=== PATIENT | female | born 1970 | race Two or more races ===

== ENCOUNTER 2019-02-04 08:26 | Outpatient (CLI) | payer OTHER | END 2019-02-04 14:21 | disposition home or self-care (01) | LOC: SONOGRAMA 08:26 | DX: E04.1 Nontoxic single thyroid nodule (principal); C73 Malignant neoplasm of thyroid gland ==

== ENCOUNTER 2019-02-22 08:35 | Outpatient (CLI) | payer OTHER | END 2019-02-22 11:53 | disposition home or self-care (01) | LOC: RAD 08:35 | DX: M54.2 Cervicalgia (principal); M54.5 Low back pain; M54.6 Pain in thoracic spine ==

== ENCOUNTER 2019-05-10 10:06 | Outpatient (CLI) | payer OTHER | END 2019-05-10 10:08 | disposition home or self-care (01) | LOC: MAMO-SONO 10:06 | DX: N60.11 Diffuse cystic mastopathy of right breast (principal); N60.12 Diffuse cystic mastopathy of left breast; Z12.31 Encounter for screening mammogram for malignant neoplasm of breast; Z87.898 Personal history of other specified conditions ==

== ENCOUNTER → 2020-02-03 | Outpatient (CLI) | payer OTHER | END | disposition home or self-care (01) | LOC: PPH VACUNA 08:00 | DX: Z23 Encounter for immunization (principal) ==

== ENCOUNTER → 2020-03-27 | Outpatient (CLI) | payer OTHER | END | disposition home or self-care (01) | LOC: SONOGRAMA 14:16 | PROVIDERS: ATTEND Pathology Anatomic Pathology & Clinical Pathology | DX: C73 Malignant neoplasm of thyroid gland (principal) ==

== ENCOUNTER → 2020-05-10 | Outpatient (CLI) | payer OTHER | END | disposition home or self-care (01) | LOC: PPH VACUNA | DX: Z23 Encounter for immunization (principal) ==

== ENCOUNTER 2020-12-27 09:22 | Outpatient (CLI) | payer OTHER | END 2020-12-27 14:21 | disposition home or self-care (01) | LOC: MAMO-SONO 09:22 | PROVIDERS: ATTEND Obstetrics & Gynecology | DX: N60.11 Diffuse cystic mastopathy of right breast (principal); N60.12 Diffuse cystic mastopathy of left breast; C73 Malignant neoplasm of thyroid gland; E04.1 Nontoxic single thyroid nodule; Z12.31 Encounter for screening mammogram for malignant neoplasm of breast ==

== ENCOUNTER 2021-02-15 15:47 | Outpatient (CLI) | payer OTHER | END 2021-02-15 15:49 | disposition home or self-care (01) | LOC: PPH VACUNA 15:47 | PROVIDERS: ATTEND Emergency Medicine Pediatric Emergency Medicine | DX: Z23 Encounter for immunization (principal) ==

== ENCOUNTER 2021-05-18 | Outpatient (CLI) | payer OTHER | END 2021-05-18 15:54 | disposition home or self-care (01) | LOC: PPH VACUNA | DX: Z23 Encounter for immunization (principal) | CPT/HCPCS: 90686; G0008 ==

== ENCOUNTER 2021-06-18 07:03 | Emergency (ER) | payer OTHER ==
[~2021-06-18] VITALS: Ht 157.5 cm; Wt 77.1 kg
[2021-06-18] MEDS ORDERED: KETO10TA2 PO (08:08)
[2021-06-18] MEDS ORDERED: NORFLEX100MG PO (08:08)
== END 2021-06-18 08:15 | disposition home or self-care (01) ==
LOC: ER 07:03
DX: S39.92XA Unspecified injury of lower back, initial encounter (principal); W19.XXXA Unspecified fall, initial encounter; Y93.9 Activity, unspecified; Y92.232 Corridor of hospital as the place of occurrence of the external cause; Y99.9 Unspecified external cause status

== ENCOUNTER 2023-03-03 07:42 | Outpatient (CLI) | payer OTHER ==
[~2023-03-03 07:42] MED LIST: KETO10TA2 PO; NORFLEX100MG PO
== END 2023-03-03 07:45 | disposition home or self-care (01) ==
LOC: MAMO-SONO 07:42
PROVIDERS: ATTEND Obstetrics & Gynecology
DX: N60.11 Diffuse cystic mastopathy of right breast (principal); N60.12 Diffuse cystic mastopathy of left breast; Z12.31 Encounter for screening mammogram for malignant neoplasm of breast

== ENCOUNTER 2024-02-16 07:47 | Outpatient (CLI) | payer OTHER | END 2024-02-16 07:54 | disposition home or self-care (01) | LOC: MAMO-SONO 07:47 | PROVIDERS: ATTEND Obstetrics & Gynecology | DX: N60.11 Diffuse cystic mastopathy of right breast (principal); N60.12 Diffuse cystic mastopathy of left breast ==

== ENCOUNTER 2024-03-11 07:18 | Outpatient (CLI) | payer OTHER | END 2024-03-11 07:28 | disposition home or self-care (01) | LOC: RAD 07:18 | PROVIDERS: ATTEND Internal Medicine Endocrinology, Diabetes & Metabolism | DX: N20.0 Calculus of kidney (principal); M62.838 Other muscle spasm ==

== ENCOUNTER 2024-07-06 11:18 | Outpatient (CLI) | payer OTHER | END 2024-07-06 11:19 | disposition home or self-care (01) | LOC: NUCLEAR 11:18 | PROVIDERS: ATTEND Internal Medicine Sports Medicine | DX: I10 Essential (primary) hypertension (principal); R01.1 Cardiac murmur, unspecified ==

== ENCOUNTER 2024-08-30 11:50 | Outpatient (CLI) | payer OTHER | END 2024-08-30 12:00 | disposition home or self-care (01) | LOC: SONOGRAMA 11:50 | PROVIDERS: ATTEND Pediatrics | DX: E04.1 Nontoxic single thyroid nodule (principal); M15.0 Primary generalized (osteo)arthritis ==

== ENCOUNTER 2025-02-21 07:33 | Outpatient (CLI) | payer OTHER | END 2025-02-21 07:51 | disposition home or self-care (01) | LOC: MAMO-SONO 07:33 | PROVIDERS: ATTEND Pediatrics | DX: E04.1 Nontoxic single thyroid nodule (principal); N60.11 Diffuse cystic mastopathy of right breast; N60.12 Diffuse cystic mastopathy of left breast; Z12.31 Encounter for screening mammogram for malignant neoplasm of breast ==